=== PATIENT | male | born 1955 ===

== ENCOUNTER 2018-07-05 18:12 | Emergency (ER) | payer OTHER ==
[2018-07-05 18:23] VITALS: BMI 34.9
[2018-07-05 18:24] VITALS: TEMP 97.5; O2SAT 96
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
[2018-07-05 20:01] VITALS: BP 145/96; PULSE 64; RESP 19
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
--- NOTE | 2018-07-06 17:38 | CARD ---
APPROVED REPORT Date of service: 07/05/2018 EKG Measurement Heart [id number] <Conclusion> Normal sinus rhythm ST & T wave abnormality, consider inferolateral ischemia Abnormal ECG
== END 2018-07-05 20:15 | disposition home or self-care (01) ==
LOC: MERGE 18:12 → ED 18:12 → UNMERGE 18:12 → ED 20:15
DX: R51 Headache (principal); M79.18 Myalgia, other site; I10 Essential (primary) hypertension